=== PATIENT | female | born 1960 | race Caucasian/White ===

== ENCOUNTER 2017-01-27 08:06 | Emergency (ER) | payer MEDICAID ==
[~2017-01-27] VITALS: Ht 162.6 cm; Wt 55.0 kg
[2017-01-27] MEDS ORDERED: HYDROCHLOROTHIAZIDE 25MG TABLET PO ONE (08:45)
[2017-01-27] MEDS ORDERED: ACETAMINOPHEN 325MG TABLET PO ONE (08:45)
[2017-01-27] MEDS ORDERED: CLONIDINE 0.2MG TABLET PO ONE (08:45)
[2017-01-27] MEDS ORDERED: AMLODIPINE 5MG TABLET PO ONE (08:45)
[2017-01-27 10:25] VITALS: BP 156/122
== END 2017-01-27 12:35 | disposition home or self-care (01) ==
LOC: ER 08:27
DX: F20.9 Schizophrenia, unspecified (principal); I10 Essential (primary) hypertension; F31.9 Bipolar disorder, unspecified; F17.210 Nicotine dependence, cigarettes, uncomplicated; F12.10 Cannabis abuse, uncomplicated; G40.409 Other generalized epilepsy and epileptic syndromes, not intractable, without status epilepticus; Z76.0 Encounter for issue of repeat prescription; Z86.73 Personal history of transient ischemic attack (TIA), and cerebral infarction without residual deficits
CPT/HCPCS: 99284; Z7610

== ENCOUNTER 2017-05-28 12:08 | Emergency (ER) | payer MEDICAID, OTHER ==
[~2017-05-28] VITALS: Ht 162.6 cm; Wt 57.0 kg
[2017-05-28] MEDS ORDERED: BACL-141 PO (12:27)
[2017-05-28] MEDS ORDERED: CLON2TAB PO (12:27)
[2017-05-28] MEDS ORDERED: AMLO10TA4 PO (12:27)
[2017-05-28] MEDS ORDERED: CITA20TA19 PO (12:27)
[2017-05-28] MEDS ORDERED: CLON0.2T PO (12:27)
[2017-05-28] MEDS ORDERED: HYDR25TA PO (12:27)
[2017-05-28] MEDS ORDERED: QUET300T2 PO (12:27)
[2017-05-28 13:06] VITALS: BP 107/73
== END 2017-05-28 15:09 | disposition home or self-care (01) ==
LOC: ER 14:31
DX: Z76.0 Encounter for issue of repeat prescription (principal); I10 Essential (primary) hypertension; R56.9 Unspecified convulsions; F31.9 Bipolar disorder, unspecified; F12.10 Cannabis abuse, uncomplicated; Z86.73 Personal history of transient ischemic attack (TIA), and cerebral infarction without residual deficits
CPT/HCPCS: 99283; Z7610